=== PATIENT | male | born 1940 | race Caucasian/White ===

== ENCOUNTER → 2018-03-11 | Outpatient (CLI) | payer OTHER ==
[~2018-03-11] VITALS: Ht 177.8 cm; Wt 80.7 kg
[~2018-03-11] MED LIST: ALLOPURINOL 10100 M1 PO; ASPIR-LOW81 MG PO; LISINOPRIL10 MG PO; SIMVASTATIN40 MG PO; TOPROL XL25 MG PO; VITAMIN D2000 UNIT PO; XANAX 0.25 MG0.25 MG PO
--- NOTE | ~2018-03-11 | CATHLAB ---
[facility] [address] [place] [address] INVASIVE PROCEDURE REPORT Name: TOMER BERG [id number] Admission: 03/11/18 Attend Phys: Esdras Umanzor, Discharge: Date of : 38 Date of Service: 03/14/18 0803 Report #: [id number] THIS REPORT FOR: //name// APPROVED REPORT Study performed: 03/11/2018 08:21:08 Patient Details Patient Status: Out-Patient Room #: The patient is a 77 year-old male Event Personnel Esdras Umanzor Patient Observer, Charu Schmitt Monitor, Jacklyn Xiao RTR, POLINA Cowanub, Jamarcus Vogel manager water Performed Art Access - R femoral artery* 92122 Initial Mod Sed Same Phys/QHP Gr5y 883591 74035 Mod Sed Same Phys/QHP Ea 378477 Left Heart Cath w/or w/o Coronaries 8935237 [facility] Renal Bilateral Peripheral Angiography [id number] CVRENALBIL Hemostasis w/ Mynx Indication Chest pain Procedure Narrative The patient was brought electively to the Cardiac Catheterization Laboratory and was prepped and draped in a sterile manner. The was infiltrated with 1% Lidocaine subcutaneous anesthesia. A PINNACLE 6FR Sheath #[id number] sheath was inserted into the RFA^. Coronary angiography was performed using coronary diagnostic catheters. The right coronary system was accessed and visualized with a JR 4 catheter. The left coronary system was accessed and visualized with a JL 4 catheter. The left ventricle was accessed and visualized with a Pigtail catheter. Left ventriculogram was performed in GUERRA projection. Pre-demployment femoral angiogram was performed . The patient tolerated the procedure well and there were no complications associated with the procedure. There was no hematoma. Intraoperative Conscious Sedation Sedation start time: 08:55 Case end Time: 09:19 Fentanyl 50 mcg Versed 2 mg Fluoro Time: 2.10 minutes Dose: DAP 2005.00 cGycm2 206 mGy [facility] [address] [place] [address] INVASIVE PROCEDURE REPORT Name: TOMER BERG Room #: [facility]#: [id number] Admission: 03/11/18 Attend Phys: Esdras Umanzor, Discharge: Date of : 38 Date of Service: 03/14/18 0803 Report #: [id number] Contrast Type and Amount: Visipaque 40 ml Hemodynamics The aortic pressure is 167/79 mmHg with a mean of 104 mmHg. The left ventricular pressure is 174/9 mmHg with a mean of mmHg. The left ventricular end diastolic pressure is 20 mmHg. Conclusion #1 normal left ventricular size and systolic function EF 60% #2 left main free of disease giving rise to LAD and circumflex #3 LAD is a relatively small vessel with diffuse disease no evidence or indication for intervention. #4 circumflex OM is small nondominant with mild irregularity #5 large dominant right coronary artery widely patent #6 left renal artery selectively injected has mild amount of fibromuscular disease at the ostium not flow limiting #7 right renal artery widely patent Recommendations and plan: Continue aggressive risk factor modification. No indication for coronary intervention. Follow-up will be arranged <ELECTRONICALLY SIGNED> By: Esdras Umanzor MD, [facility] 03/14/18802 2 2 Esdras Umanzor MD, FACC /INF
--- NOTE | ~2018-03-11 | EKG ---
[place] [address] [facility] [place] [address] ELECTROCARDIOGRAM REPORT Name: MORENATOMER Booth [facility] #: [facility] [id number] Admission: 03/11/18 Attend Phys: Esdras Umanzor MD, Discharge: Date of : 38 Report #: [id number] THIS REPORT FOR: //name// [facility] Test Date: 2018-03-11 Test Time: 07:48:00 Pat Name: TOMER BERG Department: Room: Gender: Slurry Man: : 1940 Requested By: Esdras Umanzor Order Number: [id number] MD: Souleymane Love Measurements Intervals [place] Rate: 77 P: 24 VT: 156 QRS: -11 QRSD: 80 T: 6 QT: 377 QTc: 427 Interpretive Statements Sinus rhythm Abnormal R-wave progression, early transition No previous ECG available for comparison Electronically Signed On 03-11-2018 8:45:22 PAN RECLAIM PROCESSOR by Souleymane Love [email or web address] <ELECTRONICALLY SIGNED> By: Souleymane Love MD, [facility] 03/11/18 0845 0748 0748 Souleymane Love MD, FACC /EPI
[2018-03-11 06:58] VITALS: BP 159/90
[2018-03-11 07:08] LABS: HEMATOCRIT 38.9 % (42.0-52.0); HEMOGLOBIN 12.8 gm/dL (14.0-18.0); MCH 29.8 pg (26.0-34.0); MCV 90.5 fL (80.0-100.0); RBC 4.3 mil/uL (4.50-6.00); RDW 13.5 % (10.5-14.5); WBC 6.2 thou/uL (4.0-11.0)
[2018-03-11 07:20] LABS: CALCIUM 9.3 mg/dL (8.5-10.1); CREATININE 1.9 mg/dL (0.7-1.3); POTASSIUM 4.2 mmol/L (3.5-5.1)
== END | disposition home or self-care (01) ==
LOC: CATH 06:37
PROVIDERS: Internal Medicine Cardiovascular Disease
DX: I25.10 Atherosclerotic heart disease of native coronary artery without angina pectoris (principal); I77.3 Arterial fibromuscular dysplasia; I10 Essential (primary) hypertension; E78.5 Hyperlipidemia, unspecified; E11.9 Type 2 diabetes mellitus without complications; Z87.891 Personal history of nicotine dependence; Z96.651 Presence of right artificial knee joint; Z79.899 Other long term (current) drug therapy; Z98.890 Other specified postprocedural states; Z79.82 Long term (current) use of aspirin

== ENCOUNTER → 2019-10-20 | Outpatient (CLI) | payer OTHER | LOC: SJCVC 09:46 | PROVIDERS: ATTEND Internal Medicine Cardiovascular Disease | DX: R94.31 Abnormal electrocardiogram [ECG] [EKG] (principal); I25.10 Atherosclerotic heart disease of native coronary artery without angina pectoris; E78.00 Pure hypercholesterolemia, unspecified; I10 Essential (primary) hypertension; E11.9 Type 2 diabetes mellitus without complications; Z79.899 Other long term (current) drug therapy ==

== ENCOUNTER → 2020-07-11 | Outpatient (CLI) | payer OTHER | LOC: SJCVC 09:42 | PROVIDERS: ATTEND Internal Medicine Cardiovascular Disease | DX: R94.31 Abnormal electrocardiogram [ECG] [EKG] (principal); R00.0 Tachycardia, unspecified; I51.7 Cardiomegaly; I25.10 Atherosclerotic heart disease of native coronary artery without angina pectoris; I10 Essential (primary) hypertension; E78.00 Pure hypercholesterolemia, unspecified; R93.1 Abnormal findings on diagnostic imaging of heart and coronary circulation; R07.9 Chest pain, unspecified; E78.5 Hyperlipidemia, unspecified; E11.9 Type 2 diabetes mellitus without complications; Z72.89 Other problems related to lifestyle; Z79.82 Long term (current) use of aspirin; Z79.899 Other long term (current) drug therapy ==

== ENCOUNTER → 2020-08-21 | Outpatient (CLI) | payer OTHER | LOC: SJCVCIMAG 08:19 | PROVIDERS: ATTEND Internal Medicine Cardiovascular Disease | DX: I25.10 Atherosclerotic heart disease of native coronary artery without angina pectoris (principal); I10 Essential (primary) hypertension; E78.00 Pure hypercholesterolemia, unspecified; R93.1 Abnormal findings on diagnostic imaging of heart and coronary circulation; R07.9 Chest pain, unspecified; E11.9 Type 2 diabetes mellitus without complications; E78.5 Hyperlipidemia, unspecified; Z72.89 Other problems related to lifestyle; Z79.899 Other long term (current) drug therapy; Z79.82 Long term (current) use of aspirin ==